=== PATIENT | female | born 1960 | race African-American/Black ===

== ENCOUNTER → 2017-03-20 | Outpatient (CLI) | payer OTHER ==
[~2017-03-20] MED LIST: ALBUTEROL17 GM INH; ASPIRIN81 M2 PO; FELDENE20 MG PO; GABAPENTIN300 MG PO; INHALER; LOVASTATIN20 MG PO; MOBIC; OTC HEARTBURN MED; SINGULAIR PO; [UNRECOGNIZED DRUG - OTHER]
== END | disposition home or self-care (01) ==
LOC: CECH 12:53
DX: R06.00 Dyspnea, unspecified (principal); R60.9 Edema, unspecified; I08.1 Rheumatic disorders of both mitral and tricuspid valves
CPT/HCPCS: 93306